=== PATIENT | female | born 1950 | race Caucasian/White ===

== ENCOUNTER → 2018-04-25 | Outpatient (CLI) | payer OTHER ==
[~2018-04-25] MED LIST: ADULT LOW DOSE81 MG PO; ADVAIR 100-501 EACH IH; ADVAIR 250-501 EACH IH; ALBUTEROL INH; AMOXICILLIN; BENICAR 5 MG5 M1 PO; BENICAR40 MG PO; BIOTIN2500 MCG PO; BYSTOLIC 5 MG5 M1 PO; BYSTOLIC10 MG PO; CALCIUM 500 +1 EAC4 PO; CELEBREX 200 M200 M1 PO; CIPROFLOXACIN500 M1 PO; CO Q-10100 MG PO; ENALAPRIL MALEA10 M1 PO; EPIPEN0.3 MG/0.3 IM; ESTRATEST OR; FLONASE 0.05%50 MCG NS; GINKO BILOBA OR; LASIX 40 MG TAB40 M1 OR; LEVOTHROID75 MCG PO; LEVOTHYROXIN0.112 M1 PO; LIDODERM TP; LORTAB 5-325 M1 EACH PO; LORTAB 7.5/5001 TA3 PO; LOSARTAN POTAS100 MG PO; MUCINEX600 MG PO; OMNICEF PO; PRAVACHOL40 MG PO; PREDNISONE; PREVACID 30MG C30 M1 PO; SINGULAIR 10 MG10 M1 PO; STOOL SOFTENER240 MG PO; SUMAVEL DO6 MG/0.5 M SQ; TRAMADOL 50 MG50 MG PO; VITAMIN B-COMP1 EAC1 PO; VITAMIN C PO; VITAMIN C W/R1000 MG PO; WELLBUTRIN XL150 M1 PO; XOLAIR SC; ZOCOR 10 MG TAB10 MG PO; [UNRECOGNIZED DRUG - OTHER] PO
== END ==
LOC: RAD 08:33
DX: Z88.2 Allergy status to sulfonamides (principal); M25.78 Osteophyte, vertebrae; Z95.0 Presence of cardiac pacemaker; Z88.8 Allergy status to other drugs, medicaments and biological substances; Z88.5 Allergy status to narcotic agent; Z88.0 Allergy status to penicillin; Z91.013 Allergy to seafood

== ENCOUNTER → 2018-09-24 | Outpatient (CLI) | payer OTHER | LOC: RAD 16:17 | DX: M47.814 Spondylosis without myelopathy or radiculopathy, thoracic region (principal); M47.816 Spondylosis without myelopathy or radiculopathy, lumbar region; M47.812 Spondylosis without myelopathy or radiculopathy, cervical region; M48.04 Spinal stenosis, thoracic region; M48.02 Spinal stenosis, cervical region; M25.78 Osteophyte, vertebrae ==

== ENCOUNTER → 2018-10-15 | Outpatient (CLI) | payer OTHER | LOC: CAT 12:09 | DX: M51.24 Other intervertebral disc displacement, thoracic region (principal); M51.27 Other intervertebral disc displacement, lumbosacral region; J90 Pleural effusion, not elsewhere classified; J98.11 Atelectasis ==

== ENCOUNTER → 2019-12-04 | Outpatient (CLI) | payer OTHER | LOC: RAD 09:04 | PROVIDERS: ATTEND Internal Medicine | DX: R05 Cough (principal) ==

== ENCOUNTER → 2020-07-23 | Outpatient (CLI) | payer OTHER | LOC: NUC 10:47 | PROVIDERS: ATTEND Family Medicine | DX: Z13.820 Encounter for screening for osteoporosis (principal); N95.9 Unspecified menopausal and perimenopausal disorder; M48.061 Spinal stenosis, lumbar region without neurogenic claudication ==